=== PATIENT | female | born 1990 | race Caucasian/White ===

== ENCOUNTER 2024-04-19 07:22 | Outpatient (AMB) | payer OTHER, SELFPAY ==
--- NOTE | 2024-04-19 07:40 | A.OFFPC_ITS ---
Vital Signs 04/19/24 07:41 Height 5 ft 5 in Weight 120 lb BMI 20.0 BP 102/76 Blood Pressure Location Lt brachial Position Sitting Pulse 95 Pulse Source Pulse Oximeter Pulse Oximetry (%) 98 Oxygen Delivery Method Room Air Intake Visit Reasons: NPV/discuss barbie concerns Intake Note: Pt is here today as a New Patient to [facility] care Allergies amoxicillin Adverse Reaction (Verified 04/19/24 07:42) hives Penicillins Adverse Reaction (Verified 04/19/24 07:42) hives Medication List - Last Reconciled 04/19/24 by Melissa Chakraborty MD alprazolam mg PO dextroamphetamine-amphetamine 10 mg 1 tab PO TID ondansetron mg PO sumatriptan succinate 50 mg PO Tobacco use date assessed: 04/19/24 Dental Screening Dental Screen Date: 04/19/24 Did you have a dental visit in the last 12 months?: Yes Did you have a dental problem in the last 6 months where you did not have access to dental care?: No Was dental information given to patient?: Patient has dentist HPI NPV/discuss barbie concerns HPI Details 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 Past medical history includes ADHD/anxiety established with therapist and a prescriber, IBS and history of chronic eosinophilic esophagitis, established with GI and online marketing director. 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 1. Little interest or pleasure in doing things: not at all 2. Feeling down, depressed, or hopeless: several days 3. Trouble falling or staying asleep, or sleeping too much: several days 4. Feeling tired or having little energy: several days 5. Poor appetite or overeating: not at all 6. Feeling bad about yourself - or that you are a failure or have let yourself or your family down: not at all 7. Trouble concentrating on things, such as reading the newspaper or watching television: more than half the days 8. Moving or speaking so slowly that other people could have noticed. Or the opposite - being so fidgety or restless that you have been moving around a lot more than usual: not at all 9. Thoughts that you would be better off or of hurting yourself in some way: not at all Total score: 5 Depression Screening Interpretation: Negative Depression Screening Done: Yes Source: Developed by Drs. Erick Marie, Radha Nunez, Alvarado Golden and colleagues, with an educational freddy from [employer]. Thrive Questionnaire Date Thrive assessed: 04/19/24 I am a: Patient What is your living situation today?: I have a steady place to live Within the past 12 months, did the food you bought not last and you didn't have the money to get more?: Never true Within the past 12 months, did you worry whether your food would run out before you got money to buy more?: Never true Do you have trouble paying for medicines?: No Do you have trouble getting transportation to medical appointments?: No Do you have trouble paying your heating and electricity bill?: No Do you have trouble taking care of your child, family member or friend?: No Do you have trouble with day-to-day activities such as bathing, preparing meals, shopping, managing finances, etc.?: Yes Are you currently unemployed and looking for a job?: No Are you interested in more education?: No THRIVE Score: 0 AUDIT C Alcohol Use Questionnaire (AUDIT-C) 1. How often do you have a drink containing alcohol?: Monthly or less 2. How many drinks containing alcohol do you have on a typical day when you are drinking?: 1 or 2 3. How often do you have six or more drinks on one occasion?: Never Total Score: 1 AMANDA-7 AMB Questionnaire AMANDA-7 Date AMANDA - 7 assessed: 04/19/24 Feeling nervous, anxious, or on edge: 2 = More than half the days Not being able to stop or control worryin = Several days Worrying too much about different things: 1 = Several days Trouble relaxin = Not at all Being so restless that it is hard to sit still: 0 = Not at all Becoming easily annoyed or irritable: 0 = Not at all Feeling afraid as if something awful might happen: 0 = Not at all Total AMANDA-7 score (0-4 normal; 5-9 mild; 10-14 moderate; 15-21 severe): 4 Source: Developed by Drs. Erick Marie, Radha Nunez, Alvarado Golden and colleagues, with an educational freddy from [employer]. Review of Systems Const All systems reviewed & are unremarkable except as noted in HPI and below Reports no additional complaints Eyes Reports no additional complaints ENT Reports no additional complaints Card Reports no additional complaints Resp Reports no additional complaints GI Reports no additional complaints Reports no additional complaints Physical exam (Primary Care) Vital Signs: Last Vital Signs Pulse 95 04/19/24 07:41 BP 102/76 04/19/24 07:41 Pulse Ox 98 04/19/24 07:41 Oxygen Delivery Method Room Air 04/19/24 07:41 BMI result Body Mass Index 20.0 Tobacco/Smoking Status: Tobacco use Status Tobacco use date assessed 04/19/24 04/19/24 07:47 Patient Tobacco Use Status Never used Tobacco 04/19/24 08:18 e-Cigarette/Vaping Use Former Use 04/19/24 08:18 PHQ-9: PHQ-9 Score PHQ-9: Total score 5 04/19/24 09:05 Depression Screening Interpretation: Negative Thrive Assessment: Date of Thrive Assessment Date Thrive assessed 04/19/24 04/19/24 07:51 Const General: no acute distress HENMT Head: Yes normal to inspection Ears: hearing grossly normal bilaterally General nose exam: Normal external nose present Face and sinus: Yes normal facial exam Mouth: Normal oral and palatal mucosa present Throat: Yes posterior oropharynx normal Eyes General: appearance normal, both eyes and all related structures Neck Neck: Yes no lymphadenopathy and Yes supple Resp Effort & Inspection: normal respiratory effort Auscultation: clear to auscultation bilaterally Cardio Rhythm: regular rhythm Heart sounds: S1 normal heart sound present and S2 normal heart sound present GI Inspection: Yes normal to inspection Palpation (GI): Soft to palpation Percussion: Yes normal to percussion Auscultation: normal bowel sounds Assessment and Plan Assessment & Plan (1) Migraine: Comment: Established with neurologist Code(s): G43.909 - Migraine, unspecified, not intractable, without status migrainosus Plan: Referred to [facility] because patient's urologist retired (2) GERD (gastroesophageal reflux disease): Code(s): K21.9 - Gastro-esophageal reflux disease without esophagitis Plan: Anti GERD, diet discussed with the patient (3) Eosinophilic esophagitis: Comment: f/o Dr. Allen EGD 04/28 Code(s): K20.0 - Eosinophilic esophagitis Plan: Follow-up with the GI and online marketing director (4) Limited scleroderma: Comment: f/u Rheumatology [facility] Code(s): M34.9 - Systemic sclerosis, unspecified Plan: Follow-up with rheumatology (5) ADHD: Comment: Nusrat MONTEJO Code(s): F90.9 - Attention-deficit hyperactivity disorder, unspecified type Plan: FOLLOW-UP WITH PSYCHIATRY (6) Alopecia: Code(s): L65.9 - Nonscarring hair loss, unspecified Plan: Follow-up with dermatology (7) Annual physical exam: Code(s): Z00.00 - Encounter for general adult medical examination without abnormal findings Plan: Well-balanced diet regular physical activity discussed with the patient. she will return for fasting blood work. Orders: Orders Comprehensive [place]. Panel Fast Today G43.909 - Migraine, unspecified, not intractable, without status migrainosus, K21.9 - Gastro-esophageal reflux disease without esophagitis, Z00.00 - Encounter for general adult medical examination without abnormal findings Lipid Panel Today G43.909 - Migraine, unspecified, not intractable, without status migrainosus, K21.9 - Gastro-esophageal reflux disease without esophagitis, Z00.00 - Encounter for general adult medical examination without abnormal findings Complete Blood Count Auto Diff Today G43.909 - Migraine, unspecified, not intractable, without status migrainosus, K21.9 - Gastro-esophageal reflux disease without esophagitis, Z00.00 - Encounter for general adult medical examination without abnormal findings Referrals Neurology Referral G43.909 - Migraine, unspecified, not intractable, without status migrainosus Allergy & Immunology Referral K20.0 - Eosinophilic esophagitis Dermatology Referral L65.9 - Nonscarring hair loss, unspecified Gastroenterology Referral K21.9 - Gastro-esophageal reflux disease without esophagitis Rheumatology Referral M34.9 - Systemic sclerosis, unspecified INSURANCE CASE MANAGER Referral Z00.00 - Encounter for general adult medical examination without abnormal findings Coding Level of Care Code Est Pt Prev Care 18-39y(59309) Diagnoses Migraine G43.909 GERD (gastroesophageal reflux disease) K21.9 Eosinophilic esophagitis K20.0 Limited scleroderma M34.9 ADHD F90.9 Alopecia L65.9 Annual physical exam Z00.00
[2024-04-19 07:41] VITALS: BP 102/76; PULSE 95; O2SAT 98
== END 2024-04-19 08:36 | disposition home or self-care (01) ==
PROVIDERS: PCP Internal Medicine; Visit Provider Internal Medicine
DX: Z00.00 Encounter for general adult medical examination without abnormal findings (principal); M34.9 Systemic sclerosis, unspecified; G43.909 Migraine, unspecified, not intractable, without status migrainosus; K21.9 Gastro-esophageal reflux disease without esophagitis; K20.0 Eosinophilic esophagitis; F90.9 Attention-deficit hyperactivity disorder, unspecified type; L65.9 Nonscarring hair loss, unspecified
CPT/HCPCS: 99395

== ENCOUNTER 2025-04-27 08:49 | Outpatient (REF) | payer OTHER, SELFPAY ==
[2025-04-27 13:25] LABS: MANUAL DIFF FLAG NO
[2025-04-27 13:31] LABS: Hematocrit 37.7 % (37.0-47.0); Hemoglobin 12.3 g/dl (12.0-16.0); Imm Gran Abs Auto 0.02 X10*3/uL (0.00-0.03); Imm Gran Pct Auto 0.4 % (0.0-0.4); Lymphocytes Absolute Auto 1.8 X10*3/uL (1.2-4.9); Mean Corpuscular HGB Conc 32.6 g/dl (31.0-35.0); Mean Corpuscular Hemoglobin 31.9 pg (27.0-33.0); Mean Corpuscular Volume 97.7 fL (80.0-98.0); NRBC Abs Auto 0.000 X10*3/uL (0.0-0.012); NRBC Pct Auto 0.0 /100WBC (0.0-0.2); Platelet Count 249 X10*3/uL (160-400); Red Blood Count 3.86 X10*6/uL (4.20-5.50); White Blood Count 5.4 X10*3/uL (4.8-10.8)
[2025-04-27 13:43] LABS: Appearance Urine Clear; Glucose Urine UA Negative (Negative); PH 8.5 (5.0-9.0); Specific Gravity - Urine 1.015 (1.005-1.025)
[2025-04-27 13:58] LABS: Alanine Aminotransferase 17 U/L (0-31); Albumin Level 4.6 g/dL (3.5-5.0); Alkaline Phosphatase 56 U/L (39-117); Anion Gap 11 (12-20); Aspartate Amino Transferase 28 U/L (5-31); Blood Urea Nitrogen 9 mg/dL (9-16); Calcium 9.3 mg/dL (8.4-10.2); Carbon Dioxide 28 mmol/L (22-29); Chloride 102 mmol/L (96-108); Cholesterol 192 mg/dL (<200); Estimated Glomerular Filt Rate > 60; HDL Cholesterol 68 mg/dL (>40); Iron 148 mcg/dL (30-160); Percent Iron Saturation 54 % (15-50); Potassium 3.7 mmol/L (3.3-5.1); Sodium 137 mmol/L (135-145); Total Iron Binding Capacity 274 mcg/dL (228-428); Total Protein 7.0 g/dL (6.5-8.0); Triglycerides 62 mg/dL (<150); Unsaturated Iron Binding 126 ug/dL
[2025-04-27 14:31] LABS: Folate 4.2 ng/mL (> or = 4.0); Vitamin B12 778 pg/mL (200-900)
== END 2025-04-27 08:50 | disposition home or self-care (01) ==
LOC: HO.HMGCLDS 08:49
PROVIDERS: PCP Internal Medicine; Visit Provider Internal Medicine
DX: Z00.00 Encounter for general adult medical examination without abnormal findings (principal); D64.9 Anemia, unspecified; F90.9 Attention-deficit hyperactivity disorder, unspecified type; M34.9 Systemic sclerosis, unspecified; Z13.30 Encounter for screening examination for mental health and behavioral disorders, unspecified; Z13.31 Encounter for screening for depression
CPT/HCPCS: 36415; 80053; 80061; 81001; 82607; 82746; 83540; 85025; 96127; 99395

== ENCOUNTER 2025-04-27 08:49 | Outpatient (AMB) | payer OTHER, SELFPAY ==
[2025-04-27 08:52] VITALS: BP 100/62; PULSE 72; RESP 18; TEMP 36.6; O2SAT 96
--- NOTE | 2025-04-27 08:52 | MHC.PC.OV ---
Vital Signs 04/27/25 08:52 Height 5 ft 5 in Weight 120 lb BMI 20.0 BP 100/62 Blood Pressure Location Lt brachial Position Sitting Respiration 18 Pulse 72 Pulse Source Pulse Oximeter Temp 97.8 F Temp Source Oral Pulse Oximetry (%) 96 Oxygen Delivery Method Room Air Intake Visit Reasons: Annual PE Intake Note: Pt is here today for PE. Allergies amoxicillin Adverse Reaction (Verified 04/27/25 08:53) hives Penicillins Adverse Reaction (Verified 04/27/25 08:53) hives Medication List - Last Reconciled 04/27/25 by Melissa Chakraborty MD alprazolam mg PO dextroamphetamine-amphetamine 10 mg 1 tab PO TID ondansetron 4 mg PO BID PRN sumatriptan succinate 50 mg PO Tobacco use date assessed: 04/27/25 Dental Screening Dental Screen Date: 04/27/25 Did you have a dental visit in the last 12 months?: Yes Did you have a dental problem in the last 6 months where you did not have access to dental care?: No Was dental information given to patient?: Patient has dentist HPI Annual PE HPI Details Pt presents for PE. 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 1. Little interest or pleasure in doing things: not at all 2. Feeling down, depressed, or hopeless: several days 3. Trouble falling or staying asleep, or sleeping too much: several days 4. Feeling tired or having little energy: several days 5. Poor appetite or overeating: not at all 6. Feeling bad about yourself - or that you are a failure or have let yourself or your family down: not at all 7. Trouble concentrating on things, such as reading the newspaper or watching television: more than half the days 8. Moving or speaking so slowly that other people could have noticed. Or the opposite - being so fidgety or restless that you have been moving around a lot more than usual: not at all 9. Thoughts that you would be better off or of hurting yourself in some way: not at all Total score: 5 Depression Screening Interpretation: Negative Depression Screening Done: Yes 92273 - PHQ-9 Billing: Yes Source: Developed by Drs. Erick Marie, Radha Nunez, Alvarado Golden and colleagues, with an educational freddy from [employer]. Thrive Questionnaire Date Thrive assessed: 04/27/25 I am a: Patient What is your living situation today?: I have a steady place to live Within the past 12 months, did the food you bought not last and you didn't have the money to get more?: Never true Within the past 12 months, did you worry whether your food would run out before you got money to buy more?: Never true Do you have trouble paying for medicines?: No Do you have trouble getting transportation to medical appointments?: No Do you have trouble paying your heating and electricity bill?: No Do you have trouble taking care of your child, family member or friend?: No Do you have trouble with day-to-day activities such as bathing, preparing meals, shopping, managing finances, etc.?: Yes Are you currently unemployed and looking for a job?: No Are you interested in more education?: No THRIVE Score: 0 AUDIT C Alcohol Use Questionnaire (AUDIT-C) 1. How often do you have a drink containing alcohol?: Monthly or less 2. How many drinks containing alcohol do you have on a typical day when you are drinking?: 1 or 2 3. How often do you have six or more drinks on one occasion?: Never Total Score: 1 AMANDA-7 AMB Questionnaire AMANDA-7 Date AMANDA - 7 assessed: 04/27/25 Feeling nervous, anxious, or on edge: 2 = More than half the days Not being able to stop or control worryin = Several days Worrying too much about different things: 1 = Several days Trouble relaxin = Not at all Being so restless that it is hard to sit still: 0 = Not at all Becoming easily annoyed or irritable: 0 = Not at all Feeling afraid as if something awful might happen: 0 = Not at all Total AMANDA-7 score (0-4 normal; 5-9 mild; 10-14 moderate; 15-21 severe): 4 Source: Developed by Drs. Erick Marie, Radha Nunez, Alvarado Golden and colleagues, with an educational freddy from [employer]. AMANDA-7 Assessment Billing AMANDA-7 Assessment Tool: AMANDA-7 Assessment 77074 Review of Systems Const All systems reviewed & are unremarkable except as noted in HPI and below Eyes Reports no additional complaints ENT Reports no additional complaints Card Reports no additional complaints Resp Reports no additional complaints GI Reports no additional complaints Reports no additional complaints Physical exam (Primary Care) Vital Signs: Last Vital Signs Temp 97.8 F 04/27/25 08:52 Pulse 72 04/27/25 08:52 Resp 18 04/27/25 08:52 BP 100/62 04/27/25 08:52 Pulse Ox 96 04/27/25 08:52 Oxygen Delivery Method Room Air 04/27/25 08:52 BMI result Body Mass Index 20.0 Tobacco/Smoking Status: Tobacco use Status Tobacco use date assessed 04/27/25 04/27/25 09:00 Patient Tobacco Use Status Never used Tobacco 04/27/25 09:00 e-Cigarette/Vaping Use Former Use 04/27/25 09:00 PHQ-9: PHQ-9 Score PHQ-9: Total score 5 04/27/25 09:22 Depression Screening Interpretation: Negative Thrive Assessment: Date of Thrive Assessment Date Thrive assessed 04/27/25 04/27/25 09:00 Const General: no acute distress HENMT Head: Yes normal to inspection Face and sinus: Yes normal facial exam Throat: Yes posterior oropharynx normal Neck Neck: Yes no lymphadenopathy and Yes supple Resp Effort & Inspection: normal respiratory effort Auscultation: clear to auscultation bilaterally Cardio Rhythm: regular rhythm Heart sounds: S1 normal heart sound present and S2 normal heart sound present GI Inspection: Yes normal to inspection Palpation (GI): Soft to palpation Percussion: Yes normal to percussion Auscultation: normal bowel sounds Coding Level of Care Code Est Pt Prev Care 18-39y(69555) Diagnoses ADHD F90.9 Limited scleroderma M34.9 Anemia D64.9 Annual physical exam Z00.00 Additional Codes AMANDA-7 Assessment Billing - AMANDA-7 Assessment Tool: AMANDA-7 Assessment 63000 ([id number]) PHQ-9 - 06642 - PHQ-9 Billing: Yes ([id number]) Assessment & Plan Assessment & Plan (1) ADHD: 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 Panel Fast Today D64.9 - Anemia, unspecified, Z00.00 - Encounter for general adult medical examination without abnormal findings Vitamin B12 and Folate Today D64.9 - Anemia, unspecified, Z00.00 - Encounter for general adult medical examination without abnormal findings PFT pulmonary function test Today M34.9 - Systemic sclerosis, unspecified Complete Blood Count Auto Diff Today D64.9 - Anemia, unspecified, Z00.00 - Encounter for general adult medical examination without abnormal findings IRON PROFILE Today D64.9 - Anemia, unspecified, Z00.00 - Encounter for general adult medical examination without abnormal findings Lipid Panel Today D64.9 - Anemia, unspecified, Z00.00 - Encounter for general adult medical examination without abnormal findings UA w Microscopic Today D64.9 - Anemia, unspecified, Z00.00 - Encounter for general adult medical examination without abnormal findings Medications: Refilled ondansetron 4 mg PO BID PRN 30 tabs 1RF nausea and vomiting
--- OUTSIDE RECORDS SUMMARY | 2025-04-27 09:11 | XMS_ITS | Clinical Summary ---
Author Organization [address] Address [address] [place] [phone] Phone Care Team Providers Care Bilingual Account Manager Name Role Phone Melissa Chakraborty MD Primary Care Provider [phone] Allergies Active Allergy Reactions Criticality Noted Date Comments Amoxicillin 03/18/2025 Penicillins 03/18/2025 Medications SUMAtriptan (IMITREX) 50 mg tablet Take 1 tablet (50 mg total) by mouth. 5 03/02/20 26 Active ondansetron ODT (ZOFRAN-ODT) 4 mg disintegrating tablet Take 1 tablet (4 mg total) by mouth. 4 Active amphetamine-dextroa mphetamine (ADDERALL) 10 mg tablet Take 1 tablet (10 mg total) by mouth daily. Max Daily Amount: 10 mg 4 Active ALPRAZolam (XANAX) 0.5 mg tablet Take 2 tablets (1 mg total) by mouth 1 (one) time each day. Active Encounters Date Type Department Care Team Description 03/18/2025 9:20 AM EDT Office Visit Gastroenterology - [address] [place] [id number] Melissa Allen MD Eosinophilic esophagitis (Primary Dx) from Last 3 Months Surgical History Surgery Date Site/Laterality Comments ESOPHAGOGASTRODUODENOSCOPY 05/21/2022 No celiac, no H. pylori, positive EOE with greater than 50 eos/hpf ESOPHAGOGASTRODUODENOSCOPY 04/06/2024 52 eos/hpf Medical History Medical History Date Comments Adhd Chronic migraine without aura Generalized anxiety disorder GERD (gastroesophageal reflux disease) Limited scleroderma (CMS/HCC V24, CMS/HCC V28) Ganglion cyst Eosinophilic esophagitis 05/21/2022 Family History Medical History Relation Name Comments Hypertension Father No Known Problems Mother Relation Name Status Comments Father Alive Mother Alive Social History Tobacco Use Types Packs/Day Years Used Date Smoking Tobacco: Never Smokeless Tobacco: Never Alcohol Use Standard Drinks/Week Comments Never 0 (1 standard drink = 0.6 oz pur e alcohol) Comments Unknown Sex and Gender Information Value Date Recorded Sex Assigned at Not on file Legal Sex Female 4:22 AM EST Gender Identity Not on file Sexual Orientation Not on file 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 Not on file Not on file Obstetrics History Last Filed Vital Signs Vital Sign Reading Time Taken Comments Blood Pressure - - Pulse - - Temperature - - Respiratory Rate - - Oxygen Saturation - - Inhaled Oxygen Concentration - - Weight 54.3 kg (119 lb 9.6 oz) 03/18/2025 9:02 A M EDT Height 165.1 cm (5' 5 ) 03/18/2025 9:02 AM EDT Body Mass Index 19.9 03/18/2025 9:02 AM EDT Plan of Treatment Health Maintenance Due Date Last Done Comments Hepatitis B Vaccines (1 of 3 - 19+ 3-dose series) 2009 Cervical Cancer Screening: P ap Smear 2011 HIV Screening 09/08/2022 Hepatitis C Screening 09/08/2022 Social Influencers of Health Screening 09/08/2022 COVID-19 Vaccine (3 - 2023-2 5 season) 2024 12/08/2020, 11/20/2020 Depression Screening 10/06/2024 Influenza Vaccine (#1) 2025 , 08/15/2019, 08/04/2018 DTaP,Tdap,and Td Vaccines (2 - Td or Tdap) 10/15/2033 10/15/2023 HIB Vaccines Aged Out No longer eligi ble based on patient's age to complete this topic HPV Vaccines Aged Out No longer eligi ble based on patient's age to complete this topic Hepatitis A Vaccines Aged Out No long er eligible based on patient's age to complete this topic IPV Vaccines Aged Out No longer eligi ble based on patient's age to complete this topic MMR Vaccines Aged Out No longer eligi ble based on patient's age to complete this topic Meningococcal ACWY Vaccine Aged Out N o longer eligible based on patient's age to complete this topic Meningococcal B Vaccine Aged Out No l onger eligible based on patient's age to complete this topic Pneumococcal Vaccine: Pediatrics (0 to 5 Years) and At-Risk Patients (6 to 49 Years) Aged Out No longer eligible b ased on patient's age to complete this topic RSV Immunization Patients Under 20 months Aged Out No longer eligible b ased on patient's age to complete this topic Varicella Vaccines Aged Out No longer eligible based on patient's age to complete this topic Insurance [employer] Care Teams Bilingual Account Manager Relationship Specialty Start Date End Date Melissa Chakraborty MD [phone] [place] [phone] PCP - General Internal Medicine 01/13/25
--- OUTSIDE RECORDS SUMMARY | 2025-04-27 09:11 | XMS_ITS | Clinical Summary ---
Author Organization [facility] Address [address] [place] [address] Phone Care Team Providers Care Jawbone Breaker Name Role Phone Ramonita Beach Unavailable [phone] Melissa Chakraborty MD Primary Care Provider Medications ALPRAZolam (XANAX) 0.5 MG tablet Take 0.5 mg by mouth daily as needed for anxiety. Active dextroamphetamine- amphetamine (ADDERALL) 10 mg Tab tablet Take 10 mg by mouth daily. 4 Active SUMAtriptan (IMITREX) 50 MG tablet Take 50 mg by mouth once as needed for migraine. Active ondansetron (ZOFRAN-ODT) 4 MG disintegrating tablet Take 4 mg by mouth every 8 (eight) hours as needed for nausea. Active gabapentin (NEURONTIN) 300 MG capsule 1 bid and 1 to 2 hs prn severe headache 120 capsule 4 4 Active chlorzoxazone (PARAFON FORTE) 500 mg tablet 1 tid prn headache not responding to gabapentin and sumatriptan. 30 tablet 2 4 Active Social History Tobacco Use Types Packs/Day Years Used Date Smoking Tobacco: Never Assessed Education Answer Date Recorded Are you interested in more education? Not on jarred e 01/31/2023 Are you concerned about learning? Not on file 01/31/2023 No 01/31/2023 No 01/31/2023 Digital Access Answer Date Recorded No 03/03/2023 No 03/03/2023 No 03/03/2023 Reliable internet access at home? Not on file 03/03/2023 Device with a working camera? Not on file Comments Unknown Sex and Gender Information Value Date Recorded Sex Assigned at Female 03/27/2023 1:09 PM EDT Legal Sex Female 3:56 PM EDT Gender Identity Female 03/27/2023 1:09 PM EDT Sexual Orientation Asexual 10/02/2023 11 :59 AM EST Last Filed Vital Signs Vital Sign Reading Time Taken Comments Blood Pressure 111/62 10/22/2023 2:11 PM EST Pulse 76 10/22/2023 2:11 PM EST Temperature 36.8 C (98.3 F) 10/22/2023 2:11 PM EST Respiratory Rate - - Oxygen Saturation - - Inhaled Oxygen Concentration - - Weight 49.9 kg (110 lb) 10/22/2023 2:11 PM EST Height 165.1 cm (5' 5 ) 10/22/2023 2:11 PM EST Body Mass Index 18.3 10/22/2023 2:11 PM EST Plan of Treatment Upcoming Encounters Date Type Department Care Team (Late st Contact Info) Description 11/25/2025 11:30 AM EST Office [place] [facility] [place] [address] [facility] 8th Floor, [address] [place] [address] Krista Zapata MD [address] [place] [address] [email or web address] Maintenance Due Date Last Done Comments Adult Td,Tdap Booster 1990 DEPRESSION SCREENING 2002 SMOKING Hx and SMOKELESS TOBACCO SCREENING 2003 HEPATITIS C SCREENING 2008 HIV ONE-TIME SCREENING (18-6 5 YEARS) 2008 PAP SMEAR 2011 COVID-19 VACCINE (2023-2 5 season) 2024 12/08/2020, 11/20/2020 HEPATITIS A VACCINES Aged Out No long er eligible based on patient's age to complete this topic HIB VACCINES Aged Out No longer eligi ble based on patient's age to complete this topic MENINGOCOCCAL VACCINES (ACWY) Aged Out No longer eligible based on patient's age to complete this topic MENINGOCOCCAL VACCINES (B) Aged Out N o longer eligible based on patient's age to complete this topic PNEUMOCOCCAL VACCINES (0-49 years) Aged Out No longer eligible b ased on patient's age to complete this topic Medical Devices Not on [place] [address] [place] [address] [place] [address] [place] [address] [place] [address] [place] [address] ACO Care Teams Jawbone Breaker Relationship Specialty Start Date End Date Melissa Chakraborty MD [facility] [place] [address] PCP - General Internal Medicine 02/02/25 Ramonita Beach PA [address] [place] [id number] [email or web address] Patient Access Director 01/13/25 Additional Source Comments The information contained in this document represents components of the legal health record. It is not the complete legal health record.[facility]
--- OUTSIDE RECORDS SUMMARY | 2025-04-27 09:11 | XMS_ITS | Clinical Summary ---
Author Organization [facility] Address [address] [place] [address] Care Team Providers Care Health Insurance Agent Name Role Phone Pancho Ashraf MD Primary Care Provider [phone] Allergies Active Allergy Reactions Criticality Noted Date Comments Penicillin G Hives,Unknown/Patien t and Family Unable to Define Medium 10/18/2022 Medications ALPRAZolam (XANAX) 0.5 MG tablet Active amphetamine-dex troamphetamine (ADDERALL) 7.5 MG tablet Active nortriptyline (PAMELOR) 10 MG/5ML solution Acti ve SUMAtriptan (IMITREX) 50 MG tablet Active proMETHAZINE (PHENERGAN) 25 MG tablet TAKE 1 TABLET BY MOUTH TWICE A DAY FOR NAUSEA WITH MIGRAINE 09/18/2022 Active Family History Medical History Relation Name Comments Asthma Brother Relation Name Status Comments Brother Social History Tobacco Use Types Packs/Day Years Used Date Smoking Tobacco: Never Smokeless Tobacco: Never Tobacco Cessation:Counseling Given: Not Answered Comments Unknown Sex and Gender Information Value Date Recorded Sex Assigned at Not on file Legal Sex Female 10:30 AM EST Gender Identity Not on file Sexual Orientation Not on file 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 Not on file Not on file Last Filed Vital Signs Vital Sign Reading Time Taken Comments Blood Pressure - - Pulse - - Temperature - - Respiratory Rate - - Oxygen Saturation - - Inhaled Oxygen Concentration - - Weight 54.4 kg (120 lb) 10/18/2022 12:15 PM EST Height 165.1 cm (5' 5 ) 10/18/2022 12:15 PM EST Body Mass Index 19.97 10/18/2022 12:15 PM EST Plan of Treatment Health Maintenance Due Date Last Done Comments Hepatitis C Virus Screening 1990 HIV Screening 2003 DTaP/Tdap/Td Vaccines (1 - Tdap) 2009 Hepatitis B Vaccines (1 of 3 - 19+ 3-dose series) 2009 Pap Smear (Ages 21-65) 2011 COVID-19 Vaccine (3 - 2023-2 5 season) 2024 12/08/2020, 11/20/2020 Influenza Vaccine 05/06/2025 08/15/2020, 08/15/2019, 08/04/2018 HPV Vaccines Aged Out No longer eligi ble based on patient's age to complete this topic Pneumococcal Vaccine: Pediatric (0-5 Years) and At-Risk Patients (6 to 49 Years) Aged Out No longer eligible b ased on patient's age to complete this topic Insurance [facility] HMO Care Teams Health Insurance Agent Relationship Specialty Start Date End Date Pancho Ashraf MD [address] [place] [address] PCP - General Internal Medicine 09/24/22
--- OUTSIDE RECORDS SUMMARY | 2025-04-27 09:12 | XMS_ITS ---
Author Name [facility] Organization Unknown History of Medication Use Medication Directions Dispensed Refills Start Date End Date Stat us ALPRAZolam (XANAX) 0.5 MG tablet active nortriptyline (PAMELOR) 10 MG/5ML solution active SUMAtriptan (IMITREX) 50 MG tablet active Allergies Allergen Reaction Severity Comment Documented Date Source Statu s PENICILLIN G UNKNOWN/PATIENT AND FAMILY UNABLE TO DEFINE 10/18/2022 CCT acti ve Encounters Encounter Type Encounter Reason Primary Diagnosis Location Date Ambulatory Eosinophilic esophagitis [facility] 10/18/2022 Care Team Organization Name Specialty Phone Email Start Date End [facility] ROBERT DE LUNA Primary Care 10/18/2022 [facility] Pancho De Luna Primary Care 09/09/2022 10/18/2022 [facility] NO PCP Primary Care 09/09/2022 10/18/2022
--- OUTSIDE RECORDS SUMMARY | 2025-04-27 09:12 | XMS_ITS | Patient Health Record ---
Author Organization [facility] Address [address] [facility] [address] [place] [address] Care Team Providers Care Special Education Superintendent Name Role Phone CALIXTO VOSS, LEO Primary Care Provider Un available Kathrine Sotomayor Unavailable [phone] Allergies Allergen (clinical drug ingredient) Drug/Non Drug Allergy documented on EMR Reaction Allergy Type Onset Date Status amoxicillin Amoxicillin Unknown Drug Allergy Act abigail ethinyl estradiol / norethindrone Alyacen Fainting Drug Allergy Active Penicillin Unknown Drug Allergy Active Reason For Referral No Information Medications Medication SIG (Take, Route, Frequency, Duration) Notes Start Date End Date Status SUMAtriptan Succinate 50 MG 1 tablet as needed Orally Active Amphetamine-Dextroamphetami ne 7.5 MG (Schedule II Drug) TAKE ONE TABLET BY MOUTH THREE TIMES A DAY Oral; Duration: 30 Active Probiotic Active Medical Marijuana Ac tive ALPRAZolam 0.5 MG TAKE 2 TABLETS BY [facility] EVERY DAY Oral; Duration: 30 Active Estradiol Vaginal Cream 0.01% 1 Gram to the affected area VULVA Twice a week; Duration: 90 Days 08/06/2023 Active Social History Tobacco Use: Social History Observation Description Date Details (start date - stop date) Never Smoker NA - NA Tobacco Use/Smoking Question Answer Notes Are you a nonsmoker Alcohol Screen (Audit-C) Question Answer Notes Did you have a drink contain ing alcohol in the past year? Yes How often did you have a dri nk containing alcohol in the past year? Monthly or less (1 point) How many drinks did you have on a typical day when you were drinking in the past year? 1 or 2 drinks (0 point) Points 1 Interpretation Negative Sexual History Question Answer Notes Had sex in the past 12 months (vaginal, oral, or anal)? No Problems Problem Type SNOMED Code ICD Code Onset Dates Problem Status W/U Status Risk Notes Problem Gynecological examination abnormal (690275770809125) Encounter for gynecological examination (general) (routine) with abnormal findings (Z01.411) Active confirmed Problem Noninflammatory disorder of the vagina (39165311) Other specified noninflammatory disorders of vagina (N89.8) Active confirmed Problem Refractory migraine without aura (801236765) Migraine without aura, intractable, without status migrainosus (G43.019) Active confirmed Problem Chronic migraine without aura, non-intractable (811894677410350) Chronic migraine without aura, not intractable, without status migrainosus (G43.709) Active confirmed Problem Menstrual migraine (54938393) Menstrual migraine, not intractable, without status migrainosus (G43.829) Active confirmed Problem Systemic sclerosis (97672238) Other systemic sclerosis (M34.89) Active confirmed Problem Atrophy of vulva (887567168) Atrophy of vulva (N90.5) Active confirmed Problem Irregular Menstruation (02286699) Other specified irregular menstruation (N92.5) Active confirmed Problem Abnormal vaginal bleeding (021386602) Other specified abnormal uterine and vaginal bleeding (N93.8) Active confirmed Problem Surveillance of contraception (436855645) Encounter for surveillance of contraceptives, unspecified (Z30.40) Active confirmed Plan Of Treatment Pending Test Test Name Order Date Test, Urine 10/30/2020 Urinalysis 08/02/2021 Urinalysis 02/19/2022 Urinalysis 10/30/2020 Urinalysis 07/20/2018 Urinalysis 07/26/2019 Ultrasound : Abdominal 08/03/2021 ONE SWAB 11/22/2016 ONE SWAB 06/16/2017 HEP. B SURF. AG 04/05/2016 HERPES SIMPLEX TYPE 1/2 IGM 07/08/2023 HSV 2 IGG AB 04/05/2016 THIN PREP,HPV IF ASCUS, CT/GC (21-29YR) 07/26/2019 THIN PREP,HPV IF ASCUS, CT/GC (21-29YR) 07/03/2017 THIN PREP,HPV IF ASCUS, CT/GC (21-29YR) 07/20/2018 SYPHILIS TESTING 04/05/2016 HIV AB-AG 4TH GENERATION 04/05/2016 HSV 1/2 IGG ANTIBODY 07/08/2023 ULTRASOUND: PELVIC W/TRANSVAGINAL 2020 Insurance Providers Payer Name Payer Address Payer Phone Subscriber Number Group Number Insured Name Patient Relationship to Insured Coverage Start Date Coverage End Date [facility] [address] [address] [place] [address] [id number] LOBO DE Self - patient is the insured 3 Medical (General) History Medical History History ICD Code Follicular cyst of the skin and subcutan eous tissue, unspecified L72.9 Localized swelling, mass and lump, unspe cified R22.9 Anxiety disorder, unspecified F41.9 Atypical squamous cells of u ndetermined significance on cytologic smear of cervix (ASC-US) R87.610 Migraine without aura, intractable, with out status migrainosus G43.019 Menstrual migraine, not intractable, wit hout status migrainosus G43.829 Headache R51 Localized swelling, mass and lump, unspe cified R22.9 Other specified abnormal uterine and vag inal bleeding N93.8 Ulceration of vulva N76.6 Surgical History Surgery Date(Month/Year) Botox Injections
== END 2025-04-27 11:39 | disposition home or self-care (01) ==
LOC: HO.HMCC 08:49
PROVIDERS: PCP Internal Medicine; Visit Provider Internal Medicine
DX: F90.9 Attention-deficit hyperactivity disorder, unspecified type (principal); M34.9 Systemic sclerosis, unspecified; D64.9 Anemia, unspecified; Z00.00 Encounter for general adult medical examination without abnormal findings

== ENCOUNTER 2025-05-11 08:03 | Outpatient (AMB) | payer OTHER, SELFPAY ==
[2025-05-11 08:05] VITALS: BP 94/62; PULSE 67; RESP 18; TEMP 36.8; O2SAT 98
--- NOTE | 2025-05-11 08:05 | A.OFFPC_ITS ---
Vital Signs 05/11/25 08:05 Height 5 ft 5 in Weight 120 lb BMI 20.0 BP 94/62 Blood Pressure Location Lt brachial Position Sitting Respiration 18 Pulse 67 Pulse Source Pulse Oximeter Temp 98.2 F Temp Source Oral Pulse Oximetry (%) 98 Oxygen Delivery Method Room Air Intake Visit Reasons: Foul taste in mouth Intake Note: Pt is here today for a sick visit. Pt c/o weird taste in her mouth. Allergies amoxicillin Adverse Reaction (Verified 05/11/25 08:09) hives Penicillins Adverse Reaction (Verified 05/11/25 08:09) hives Medication List - Last Reconciled 05/11/25 by Melissa Chakraborty MD alprazolam mg PO dextroamphetamine-amphetamine 10 mg 1 tab PO TID ondansetron 4 mg PO BID PRN sumatriptan succinate 50 mg PO Tobacco use date assessed: 05/11/25 Dental Screening Dental Screen Date: 04/27/25 HPI Foul taste in mouth HPI Details Pt c/o foul taste in her mouth for 5 days, resolved now. Pt denies post nasal drip, GERD symptoms, change in meds. Pt f/u with GI for eosinophilic esophagitis diet controlled. 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 Erick Marie, Radha Nunez, Alvarado Golden and colleagues, with an educational freddy from [employer]. Review of Systems Const All systems reviewed & are unremarkable except as noted in HPI and below Eyes Reports no additional complaints ENT Reports no additional complaints Card Reports no additional complaints Resp Reports no additional complaints GI Reports no additional complaints Reports no additional complaints Physical exam (Primary Care) Vital Signs: Last Vital Signs Temp 98.2 F 05/11/25 08:05 Pulse 67 05/11/25 08:05 Resp 18 05/11/25 08:05 BP 94/62 05/11/25 08:05 Pulse Ox 98 05/11/25 08:05 Oxygen Delivery Method Room Air 05/11/25 08:05 BMI result Body Mass Index 20.0 Tobacco/Smoking Status: Tobacco use Status Tobacco use date assessed 05/11/25 05/11/25 08:10 Patient Tobacco Use Status Never used Tobacco 05/11/25 08:10 e-Cigarette/Vaping Use Former Use 05/11/25 08:10 Thrive Assessment: Date of Thrive Assessment Date Thrive assessed 04/27/25 05/11/25 08:10 Const General: no acute distress HENMT Head: Yes normal to inspection Ears: TM's normal bilaterally Face and sinus: Yes normal facial exam Mouth: Normal oral and palatal mucosa present Teeth and gingiva: dentition normal Throat: Yes posterior oropharynx normal Eyes General: appearance normal, both eyes and all related structures Neck Neck: Yes no lymphadenopathy and Yes supple Resp Effort & Inspection: normal respiratory effort Auscultation: clear to auscultation bilaterally Cardio Rhythm: regular rhythm Heart sounds: S1 normal heart sound present and S2 normal heart sound present Coding Level of Care Code Est Pt Level 3 (06333) Diagnoses Eosinophilic esophagitis K20.0 Assessment & Plan Assessment & Plan (1) Eosinophilic esophagitis: Comment: f/o Dr. Allen EGD 04/28 Code(s): K20.0 - Eosinophilic esophagitis Category: Medical Plan: Follow-up with the GI Orders: Referrals Gastroenterology Referral K20.0 - Eosinophilic esophagitis
--- OUTSIDE RECORDS SUMMARY | 2025-05-11 08:07 | XMS_ITS | Clinical Summary ---
Author Organization [address] Address [address] [place] [phone] Phone Care Team Providers Care Iridologist Name Role Phone Melissa Chakraborty MD Primary Care Provider [phone] Allergies Active Allergy Reactions Criticality Noted Date [...] Encounters Date Type Department Care Team Description 05/02/2025 Telephone Gastroenterology - [address] [place] [phone] Melissa Allen MD 03/18/2025 9:20 AM EDT Office Visit Gastroenterology - [address] [place] [phone] Melissa Allen MD Eosinophilic esophagitis (Primary Dx) from Last 3 Months Surgical History Surgery Date Site/Laterality Comments ESOPHAGOGASTRODUODENOSCOPY 05/21/2022 No celiac, no H. pylori, positive EOE with greater than 50 eos/hpf ESOPHAGOGASTRODUODENOSCOPY 04/06/2024 52 eos/hpf Medical History Medical History Date Comments Adhd Chronic migraine without aura Generalized anxiety disorder GERD (gastroesophageal reflux disease) Limited scleroderma ([facility] V24, [facility] V28) Ganglion cyst Eosinophilic esophagitis 05/21/2022 Family [...] patient's age to complete this topic Insurance [facility] Care Teams Iridologist Relationship Specialty Start Date End Date Melissa Chakraborty MD [address] [place] [address] PCP - General Internal Medicine 01/13/25
--- OUTSIDE RECORDS SUMMARY | 2025-05-11 08:07 | XMS_ITS | Clinical Summary ---
Author Organization [facility] Address [address] [place] [address] Care Team Providers Care Street Commissioner Name Role Phone Pancho Ashraf MD Primary Care Provider [phone] Allergies Active Allergy Reactions Criticality Noted Date [...] patient's age to complete this topic Insurance [facility] HMO Care Teams Street Commissioner Relationship Specialty Start Date End Date Pancho Ashraf MD [address] [place] [address] PCP - General Internal Medicine 09/24/22
--- OUTSIDE RECORDS SUMMARY | 2025-05-11 08:08 | XMS_ITS | Clinical Summary ---
Author Organization [facility] Address [address] [place] [address] Phone Care Team Providers Care Fire Fighter [employer] Name Role Phone Ramonita Beach Unavailable [phone] Melissa Chakraborty MD Primary Care Provider [phone] Medications ALPRAZolam (XANAX) 0.5 MG tablet Take [...] Description 11/25/2025 11:30 AM EST Office [place] [facility] [place] [address] [facility] 8th [address], [address] [place] [address] Krista Zapata MD [address] [place] [address] [email or web address] Health Maintenance Due Date Last Done [...] topic Medical Devices Not on [place] [address] [place] [address] [place] [address] [place] [address] [place] [address] [place] [address] ACO Care Teams [employer] Relationship Specialty Start Date End Date Melissa Chakraborty MD [facility] [place] [address] PCP - General Internal Medicine 02/02/25 Ramonita Beach PA [address] [place] [id number] [email or web address] Physician Senior Caregiver 01/13/25 Additional Source Comments The information contained in this document represents components of the legal health record. It is not the complete legal health record.[facility]
--- OUTSIDE RECORDS SUMMARY | 2025-05-11 08:08 | XMS_ITS | Patient Health Record ---
Author Organization [facility] Address [address] [facility] [address] [place] [address] Care Team Providers Care Photographic Specialist Name Role Phone CALIXTO VOSS, LEO Primary Care Provider Un available Kathrine Sotomayor Unavailable [phone] Allergies Allergen (clinical drug ingredient) Drug/Non Drug [...] ALPRAZolam 0.5 MG TAKE 2 TABLETS BY [facility] EVERY DAY Oral; Duration: 30 Active [...] Status Risk Notes Problem Gynecological examination abnormal (915829221072880) Encounter for gynecological examination (general) (routine) with abnormal findings (Z01.411) Active confirmed Problem Noninflammatory disorder of the vagina (29869988) Other specified noninflammatory disorders of vagina (N89.8) Active confirmed Problem Refractory migraine without aura (781517281) Migraine without aura, intractable, without status migrainosus (G43.019) Active confirmed Problem Chronic migraine without aura, non-intractable (496260887509552) Chronic migraine without aura, not intractable, without status migrainosus (G43.709) Active confirmed Problem Menstrual migraine (64604364) Menstrual migraine, not intractable, without status migrainosus (G43.829) Active confirmed Problem Systemic sclerosis (08999717) Other systemic sclerosis (M34.89) Active confirmed Problem Atrophy of vulva (931262796) Atrophy of vulva (N90.5) Active confirmed Problem Irregular Menstruation (46979730) Other specified irregular menstruation (N92.5) Active confirmed Problem Abnormal vaginal bleeding (029404253) Other specified abnormal uterine and vaginal bleeding (N93.8) Active confirmed Problem Surveillance of contraception (412065717) Encounter for surveillance of contraceptives, unspecified (Z30.40) [...] Insured Coverage Start Date Coverage End Date [facility] [address] [address] [place] [id number] LOBO DE Self - patient is the [...]
== END 2025-05-11 08:47 | disposition home or self-care (01) ==
LOC: HO.HMCC 08:04
PROVIDERS: PCP Internal Medicine; Visit Provider Internal Medicine
DX: K20.0 Eosinophilic esophagitis (principal)

== ENCOUNTER → 2025-05-11 08:03 | Outpatient (BNVA) | payer OTHER, SELFPAY | PROVIDERS: PCP Internal Medicine; Visit Provider Internal Medicine | DX: K20.0 Eosinophilic esophagitis (principal) | CPT/HCPCS: 99212 ==

== ENCOUNTER 2025-07-13 09:05 | Outpatient (REF) | payer OTHER, SELFPAY ==
--- NOTE | 2025-07-13 09:39 | PFT_ITS ---
Flows: FEV1: 114 % of predicted at 3.67 L FVC: 117 % of predicted at 4.56 L FEV1/FVC: 80 % Bronchodilator response: Absent Volumes: Total lung capacity: 117 % of predicted at 6.30 L Residual volume: 150 % of predicted at 1.90 L Slow vital capacity: 107 % of predicted at 4.40 L Expiratory reserve volume: 117 % of predicted at 1.57 L Diffusion capacity: Normal Impression: No obstructive or restrictive ventilatory defect. No bronchodilator response. Normal pulmonary function test. MTDD
[2025-07-13 10:35] VITALS: PULSE 68; O2SAT 98
== END 2025-07-13 09:06 | disposition home or self-care (01) ==
LOC: HO.RESP 09:05
PROVIDERS: PCP Internal Medicine; Visit Provider Internal Medicine
DX: M34.9 Systemic sclerosis, unspecified (principal)
CPT/HCPCS: 94010; 94640; 94727; 94729

== ENCOUNTER → 2025-07-13 09:39 | Outpatient (BNV) | payer OTHER, SELFPAY | PROVIDERS: PCP Internal Medicine; Visit Provider Internal Medicine Pulmonary Disease | DX: M34.9 Systemic sclerosis, unspecified (principal) | CPT/HCPCS: 94060; 94727; 94729 ==